=== PATIENT | female | born 1995 | race African-American/Black ===

== ENCOUNTER 2025-03-05 13:14 | Inpatient (IN) | payer OTHER ==
[2025-03-05 14:10] LABS: Absolute Lymphocytes (CBC) 1.5 K/uL (0.7-4.9); Hematocrit 39.9 % (36.0-45.0); Hemoglobin 12.4 g/dL (12.0-15.0); MCH 25.0 pg (27.0-35.0); MCHC 31.1 g/dL (32.0-36.0); MCV 80.2 fL (80-100); MPV 8.3 fL (7.6-11.3); Nucleated RBC Absolute Count 0.0 (0-0); Nucleated Red Blood Cells % 0.0 % (0-0); RBC Red Blood Cell Count 4.97 M/uL (3.86-4.86); White Blood Count 7.10 thou/uL (4.3-10.9)
[2025-03-05 14:17] LABS: PT Prothrombin Time 13.5 SECONDS (10-13.0); Protime INR 1.2
[2025-03-05 14:31] LABS: ALT/SGPT 18 U/L (13-56); AST/SGOT 11 U/L (15-37); Albumin 2.8 g/dL (3.4-5.0); Albumin/Globulin Ratio 0.5 (1.1-1.8); Alkaline Phosphatase 90 U/L (45-117); Anion Gap 7.0 mEq/L (5.0-15.0); BUN Blood Urea Nitrogen 12 mg/dL (7-18); Globulin 5.4 g/dL (2.3-3.5); Glucose Level 207 mg/dL (74-106); Lipase 31 U/L (13-75); Magnesium 1.7 mg/dL (1.6-2.4); NT PRO-BNP 423 pg/mL (<125); Potassium 4.0 mEq/L (3.5-5.1); Troponin High Sensitivity 10.0 pg/mL (<58.9)
[2025-03-05 14:37] LABS: Bilirubin Indirect, Calculated 0.1 mg/dL (0.2-0.8)
--- NOTE | 2025-03-05 14:38 | RAD REPORT ---
EXAMINATION: ONE VIEW CHEST XR CLINICAL INDICATION: Female, 29 years old.,COUGH TECHNIQUE: Frontal chest projection is submitted. Examination is limited by patient positioning and t echnique. COMPARISON: No prior exam. FINDINGS: The lungs are grossly clear of focal opacities although suboptimal inspiratory effort somewhat limits evaluation. Central prominence of the vasculature noted No pneumothorax or sizable effusion. The heart is normal in size. Mediastinal contours are unremarkable. IMPRESSION: Prominence of the central vasculature which could relate to suboptimal inspiratory effort or mild con gestive changes.
[2025-03-05 15:01] LABS: Sqamous Epithelial <5 /HPF (None Seen); Urine Culture Reflex Order NOT NEEDED; Urine Microscopic Reflex YN ORDER UMIC
[2025-03-05 15:07] LABS: Blood Morphology Comment NOT SEEN (NOT SEEN); Differential Total Cells Count 100; Segmented Neutrophils 56 % (40-80)
[2025-03-05] MEDS ORDERED: METHYLPREDNISOLONE 125 MG INJ ONE ×2 (15:36→23:47)
[2025-03-05] MEDS ORDERED: IPRATROPIUM BROM 0.5MG/2.5ML ONE ×2 (15:36→19:26)
[2025-03-05] MEDS ORDERED: LEVALBUTEROL 1.25 MG/3 ML NEB ONE ×2 (15:36→16:56)
[2025-03-05] MEDS ORDERED: FAMOTIDINE 20 MG/2 ML VIAL IV ONE (15:36)
--- NOTE | 2025-03-05 15:39 | EDPHYS ---
Physician Documentation [facility] Name: Roldan Lowe Age: 29 yrs Sex: Female : 1995 Arrival Date: 03/05/2025 Time: 13:14 Bed 27 Private MD: ED Physician Simón Daigle HPI: 03/05 15:29 This 29 yrs old Black Female presents to ER via Wheelchair with complaints of Breathing gay Difficulty. 15:29 The patient has shortness of breath at rest, with light activity. Onset: The gay symptoms/episode began/occurred 2 day(s) ago. Duration: The symptoms are continuous, and are steadily getting worse. The patient's shortness of breath is aggravated by coughing. Associated signs and symptoms: Pertinent positives: non-productive cough. Severity of symptoms: At their worst the symptoms were mild moderate in the emergency department the symptoms are worse. The patient has experienced similar episodes in the past, several times. Historical: - Allergies: 13:30 Latuda; ll1 - Home Meds: 18:45 Metoprolol Tartrate Oral [Active]; tirzepatide subcutaneous [Active]; Albuterol Inhl hb [Active]; - PMHx: 13:30 Anxiety; Arthritis; Asthma; DM type 2; Sleep Apnea; Hypertensive disorder; trach; ll1 - PSHx: 13:30 trache placement and removal; ll1 - Immunization history:: Adult Immunizations up to date. - Infectious Disease History:: Denies. - Social history:: Smoking status: Patient/guardian denies using tobacco, Stopped _ months ago 3. ROS: 15:30 Constitutional: Negative for fever, chills, and weight loss, Eyes: Negative for injury, gay pain, redness, and discharge, ENT: Negative for injury, pain, and discharge, Neck: Negative for injury, pain, and swelling, Cardiovascular: Negative for chest pain, palpitations, and edema, Abdomen/GI: Negative for abdominal pain, nausea, vomiting, diarrhea, and constipation, Back: Negative for injury and pain, : Negative for injury, bleeding, discharge, and swelling, MS/Extremity: Negative for injury and deformity, Skin: Negative for injury, rash, and discoloration, Neuro: Negative for headache, weakness, numbness, tingling, and seizure, Psych: Negative for depression, anxiety, suicide ideation, homicidal ideation, and hallucinations, Allergy/Immunology: Negative for hives, rash, and allergies, Endocrine: Negative for neck swelling, polydipsia, polyuria, polyphagia, and marked weight changes, 15:30 Respiratory: Positive for cough, shortness of breath, wheezing, inspiratory, expiratory, Exam: 15:30 Constitutional: This is a well developed, well nourished patient who is awake, alert, gay and in no acute distress. Head/Face: Normocephalic, atraumatic. Eyes: Pupils equal round and reactive to light, extra-ocular motions intact. Lids and lashes normal. Conjunctiva and sclera are non-icteric and not injected. Cornea within normal limits. Periorbital areas with no swelling, redness, or edema. Neck: Trachea midline, no thyromegaly or masses palpated, and no cervical lymphadenopathy. Supple, full range of motion without nuchal rigidity, or vertebral point tenderness. No Meningismus. Chest/axilla: Normal chest wall appearance and motion. Nontender with no deformity. No lesions are appreciated. Cardiovascular: Regular rate and rhythm with a normal S1 and S2. No gallops, murmurs, or rubs. Normal PMI, no JVD. No pulse deficits. Abdomen/GI: Soft, non-tender, with normal bowel sounds. No distension or tympany. No guarding or rebound. No evidence of tenderness throughout. Back: No spinal tenderness. No costovertebral tenderness. Full range of motion. Skin: Warm, dry with normal turgor. Normal color with no rashes, no lesions, and no evidence of cellulitis. MS/ Extremity: Pulses equal, no cyanosis. Neurovascular intact. Full, normal range of motion., bilateral aka Neuro: Awake and alert, GCS 15, oriented to person, place, time, and situation. Cranial nerves II-XII grossly intact. Motor strength 5/5 in all extremities. Sensory grossly intact. Cerebellar exam normal. Normal gait. Psych: Awake, alert, with orientation to person, place and time. Behavior, mood, and affect are within normal limits. 15:30 ENT: stridor with cough, usual. 16:01 ECG was reviewed by the Attending Physician. [facility] Vital Signs: 13:27 BP 129 / 97; Pulse 112; Resp 22; Temp 98.3; Pulse Ox 85% on R/A; ll1 15:15 BP 117 / 71; Pulse 107; Resp 25; Pulse Ox 99% on 3 lpm NC; hb 17:51 BP 134 / 86; Pulse 103; Resp 28; Pulse Ox 95% on BiPAP; FiO2 35 %; hb 17:51 BiPAP 16/8, R16, FiO2 35% hb MDM: 13:23 Medical Screening Exam initiated gay 15:44 Differential diagnosis: Anemia Anxiety Reaction asthma, Bronchitis CHF exacerbation, gay Chronic Obstructive Pulmonary Disease pulmonary edema, Pulmonary Embolism reactive airway disease, Sepsis Unstable Angina. Antibiotic administration: Not indicated. Differential Diagnosis: Obstructed Airway Bronchitis Influenza Upper Respiratory Infection Sinusitis Pharyngitis Otitis Media Asthma Exacerbation Viral Syndrome Pneumonia. Immunization status:. Data reviewed: vital signs, nurses notes, lab test result(s), EKG, radiologic studies, plain films. I considered the following discharge prescriptions or medication management in the emergency department Medications were administered in the Emergency Department. See MAR. Independent interpretation of the following test(s) in the Emergency Department EKG: See my EKG interpretation above. Test considered but Not performed: CT: NO CT CHEST SECONDARY TO WEIGHT. Historians other than the Patient: Family Member: PT AND MOM WELL INFORMERD. Care significantly affected by the following chronic conditions: Diabetes, Hypertension, Obesity, ASTHMA, HX TRACH, ANXIETY. 16:01 ED course: PT AND FAMILY WANT TO GO TO [facility], NOT [facility]ITH[facility]. 03/05 13:26 Order name: Basic Metabolic Panel; Complete Time: 15:16 [facility] 03/05 13:26 Order name: CBC with Diff; Complete Time: 15:16 [facility] 03/05 13:26 Order name: LFT's; Complete Time: 15:16 [facility] 03/05 13:26 Order name: Magnesium; Complete Time: 15:16 [facility] 03/05 13:26 Order name: NT PRO-BNP; Complete Time: 15:16 [facility] 03/05 13:26 Order name: PT-INR; Complete Time: 15:16 [facility] 03/05 13:26 Order name: Troponin HS; Complete Time: 15:16 [facility] 03/05 13:26 Order name: Lipase; Complete Time: 15:16 [facility] 03/05 13:26 Order name: UA Rfx Camacho Cult if indicated; Complete Time: 15:16 [facility] 03/05 13:26 Order name: PREGU; Complete Time: 15:16 gay 03/05 14:18 Order name: Manual Differential; Complete Time: 15:16 EDMS 03/05 15:17 Order name: ABG; Complete Time: 16:02 bd 03/05 15:30 Order name: COVID-19 Ag + Flu A+B Ag; Complete Time: 16:37 gay 03/05 18:33 Order name: CBC with Automated Diff EDMS 03/05 18:33 Order name: CBC with Automated Diff EDMS 03/05 18:33 Order name: Comprehensive Metabolic Panel EDMS 03/05 18:33 Order name: Comprehensive Metabolic Panel EDMS 03/05 18:33 Order name: Magnesium EDMS 03/05 18:33 Order name: Magnesium EDMS 03/06 05:42 Order name: Manual Differential EDMS 03/06 10:37 Order name: D-Dimer EDHI 03/05 13:26 Order name: XRAY Chest (1 view); Complete Time: 15:16 gay 03/05 13:26 Order name: Cardiac monitoring; Complete Time: 15:15 gay 03/05 13:26 Order name: EKG - Nurse/Tech; Complete Time: 15:15 gay 03/05 13:26 Order name: IV Saline Lock; Complete Time: 15:15 gay 03/05 13:26 Order name: Labs collected and sent; Complete Time: 15:15 gay 03/05 13:26 Order name: O2 Per Protocol; Complete Time: 15:15 gay 03/05 13:26 Order name: O2 Sat Monitoring; Complete Time: 15:15 [facility] EC:01 Rate is 110 beats/min. Rhythm is regular. QRS [place] is Normal. [place] interval is normal. [facility] QRS interval is normal. QT interval is normal. No Q waves. T waves are Normal. No ST changes noted. Clinical impression: Sinus tachycardia and No evidence of ischemia. Interpreted by me. Reviewed by me. Administered Medications: 15:47 Drug: MethylPrednisoLONE IVP 125 mg IVP once Route: IVP; Site: right forearm; iw 15:47 Drug: Levalbuterol Inhalation 2.5 mg Inhalation once Route: Inhalation; iw 15:47 Drug: Ipratropium Inhalation Aerosol 0.5 mg Inhalation once Route: Inhalation; iw 15:47 Drug: Famotidine IVP 20 mg IVP once; dilute with 10 mL 0.9% NaCl; give over 2 minutes iw Route: IVP; Site: right forearm; 17:05 Drug: Magnesium Sulfate IVPB 1 grams IVPB once over 1 hrs Route: IVPB; Infused Over: 1 iw hrs; Site: right forearm; 17:06 Drug: Levalbuterol Inhalation 1.25 mg Inhalation once Route: Inhalation; iw Disposition Summary: 03/05/25 17:43 Hospitalization Ordered Notes: Hospitalization Status: Inpatient Admission gay Provider: Florentino Flores cha Condition: Fair(03/05/25 17:43) gay Problem: an acute exacerbation(03/05/25 17:43) gay Symptoms: have improved(03/05/25 17:43) gay Bed/Room Type: Standard gay Location: Telemetry/MedSurg (observation)(03/06/25 09:58) 6 Room Assignment: 205(03/06/25 09:58) 6 Diagnosis - Morbid (severe) obesity with alveolar hypoventilation(03/05/25 17:43) gay - Moderate persistent asthma with (acute) exacerbation gay - Acute and chronic respiratory failure with hypercapnia gay - Hypoxemia gay - Cough - HX OF TRACHEOSTOMY, TRACHEOMALASIA gay Forms: - Medication Reconciliation Form gay - SBAR form gay - Leadership Thank You Letter gay Signatures: Dispatcher [employer] EDSimón Ramírez MD MD cha Williams, Irene, RN RN Marian White RN [place] Emerita Delgado RN RN ll1 Grecia Jacobson RN RN 3 Jyoti Vogt [facility] Corrections: (The following items were deleted from the chart) 13:26 13:26 BASIC METABOLIC PANEL+C.LAB.BRZ ordered. EDMS EDMS 13:26 13:26 CBC+H.LAB.BRZ ordered. EDMS EDMS 13:26 13:26 HEPATIC FUNCTION+C.LAB.BRZ ordered. EDMS EDMS 13:26 13:26 MAGNESIUM+C.LAB.BRZ ordered. EDMS EDMS 13:26 13:26 PROBNP+C.LAB.BRZ ordered. EDMS EDMS 13:26 13:26 PROTIME (+INR)+COAG.LAB.BRZ ordered. EDMS EDMS 13:26 13:26 Troponin High Sensitivity+C.LAB.BRZ ordered. EDMS EDMS 13:26 13:26 LIPASE+C.LAB.BRZ ordered. EDMS EDMS 13: 13:26 UA Rfx Camacho Cult if indicated+U.LAB.BRZ ordered. EDMS EDMS 13: 13:26 Test, Urine+UC.LAB.BRZ ordered. EDMS EDMS 13: 13:26 Chest Single View+RAD.RAD.BRZ ordered. EDMS EDMS 15:18 14:00 Social history: Smoking status: Patient denies any tobacco usage or history of. hbhb 15:30 15:30 COVID-19 Ag + Flu A+B Ag+I.LAB.BRZ ordered. EDMS EDMS 16:03 16:03 BiPap ([employer] Only)+RC.RAD.BRZ ordered. EDMS EDMS 17:41 15:38 to [facility] gay gay 17:41 15:38 [facility]-System gay gay 17:41 15:38 Higher level of care gay gay 17:41 15:38 Stable gay gay 17:41 15:38 new gay gay 17:41 15:38 have improved gya gay 17:41 15:38 Dyspnea gay gay 17:41 15:38 Tracheostomy complications - HISTORY, HX OF TRACHEALMALASIA gay gay 17:41 15:38 Apnea, not elsewhere classified gay gay 17:41 15:38 Morbid (severe) obesity with alveolar hypoventilation gay gay 18:40 17:43 Telemetry/MedSurg (Inpatient) gay kb3 18:40 17:43 gay kb3 03/06 09:58 03/05 18:40 [facility] ER HOLD kb3 bc6 03/06 09:58 03/05 18:40 ERHOLD- kb3 bc6
--- NOTE | 2025-03-05 15:39 | ER ---
Nurse's Notes [facility] Name: Roldan Lowe Age: 29 yrs Sex: Female : 1995 Arrival Date: 03/05/2025 Time: 13:14 Bed 27 Private MD: Diagnosis: Morbid (severe) obesity with alveolar hypoventilation;Moderate persistent asthma with (acute) exacerbation;Acute and chronic respiratory failure with hypercapnia;Hypoxemia;Cough-HX OF TRACHEOSTOMY, TRACHEOMALASIA Presentation: 03/05 13:27 Chief complaint: Patient states: she feels like the airway is closing in and having ll1 chest tightness that began last night. 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 pt has hx of Trach placed in october and removed 3 rd week of october. Coronavirus screen: At this time, the client does not indicate any symptoms associated with coronavirus-19. Ebola Screen: No symptoms or risks identified at this time. Initial Sepsis Screen: Does the patient meet any 2 criteria? RR > 20 per min. HR > 90 bpm. Yes Does the patient have a suspected source of infection? No. Patient's initial sepsis screen is negative. Risk Assessment: Do you want to hurt yourself or someone else? Patient reports no desire to harm self or others. Onset of symptoms was March 04, 2025. 13:27 Method Of Arrival: Wheelchair ll1 13:27 Acuity: DEB 2 ll1 Triage Assessment: 13:30 General: Appears distressed, Behavior is cooperative, appropriate for age, anxious. ll1 Pain: Complains of pain in chest. Respiratory: Reports shortness of breath at rest on exertion Airway is patent Respiratory effort is labored, Respiratory pattern is regular, symmetrical, tachypnea. Historical: - Allergies: 13:30 Latuda; ll1 - Home Meds: 18:45 Metoprolol Tartrate Oral [Active]; tirzepatide subcutaneous [Active]; Albuterol Inhl hb [Active]; - PMHx: 13:30 Anxiety; Arthritis; Asthma; DM type 2; Sleep Apnea; Hypertensive disorder; trach; ll1 - PSHx: 13:30 trache placement and removal; ll1 - Immunization history:: Adult Immunizations up to date. - Infectious Disease History:: Denies. - Social history:: Smoking status: Patient/guardian denies using tobacco, Stopped _ months ago 3. Screenin:18 [facility] ED Fall Risk Assessment (Adult) History of falling in the last 3 months, hb including since admission No falls in past 3 months (0 pts) Confusion or Disorientation No (0 pts) Intoxicated or Sedated No (0 pts) Impaired Gait Yes (1 pt) Mobility Assist Device Used Yes (1 pt) Altered Elimination No (0 pt) Score/Fall Risk Level 0 - 2 = Low Risk Oriented to surroundings, Maintained a safe environment, Educated pt \T\ family on fall prevention, incl call for assistance when getting out of bed. Abuse screen: Denies threats or abuse. Denies injuries from another. Nutritional screening: No deficits noted. Tuberculosis screening: No symptoms or risk factors identified. Assessment: 14:00 General: Appears in no apparent distress. Behavior is calm, cooperative. Pain: Denies hb pain. Neuro: Level of Consciousness is awake, alert, obeys commands, Oriented to person, place, time, situation. Cardiovascular: Patient's skin is warm and dry. Respiratory: Respiratory effort is mildly labored Respiratory pattern is tachypnea. GI: No signs and/or symptoms were reported involving the gastrointestinal system. : No signs and/or symptoms were reported regarding the genitourinary system. EENT: No signs and/or symptoms were reported regarding the EENT system. Derm: Skin is pink, warm \T\ dry. Musculoskeletal: No signs and/or symptoms reported regarding the musculoskeletal system. 15:40 Reassessment: Patient appears in no apparent distress at this time. No changes from hb previously documented assessment. 17:51 Reassessment: Patient appears in no apparent distress at this time. No changes from hb previously documented assessment. Vital Signs: 13:27 BP 129 / 97; Pulse 112; Resp 22; Temp 98.3; Pulse Ox 85% on R/A; ll1 15:15 BP 117 / 71; Pulse 107; Resp 25; Pulse Ox 99% on 3 lpm NC; hb 17:51 BP 134 / 86; Pulse 103; Resp 28; Pulse Ox 95% on BiPAP; FiO2 35 %; hb 17:51 BiPAP 16/8, R16, FiO2 35% hb ED Course: 13:22 Patient arrived in ED. ll1 13:22 Simón Daigle MD is Attending Physician. gay 13:30 Triage completed. ll1 13:30 Arm band placed on right wrist. ll1 13:49 XRAY Chest (1 view) In Process Unspecified. EDMS 13:55 EKG done, by ED staff, reviewed by Simón Daigle MD. hb 13:56 Accessed peripheral vein via ultrasound, utilizing dynamic ultrasound technique using hb per hospital protocol. Clean \T\ dry. Dressing intact. Good blood return. Flushes easily. 20g RFA. 13:56 Initial lab(s) drawn, by me, sent to lab. hb 14:00 Patient has correct armband on for positive identification. Bed in low position. Call hb light in reach. Provided Education on: call light. Client placed on continuous cardiac and pulse oximetry monitoring. NIBP monitoring applied. vehicle monitor technician on. Pulse ox on. NIBP on. 15:[address] [facility] as requested by pt. 17:41 Florentino Flores MD is Hospitalizing Provider. gay 18:45 No provider procedures requiring assistance completed. Patient admitted, IV remains in hb place. Administered Medications: 15:47 Drug: MethylPrednisoLONE IVP 125 mg IVP once Route: IVP; Site: right forearm; iw 15:47 Drug: Levalbuterol Inhalation 2.5 mg Inhalation once Route: Inhalation; iw 15:47 Drug: Ipratropium Inhalation Aerosol 0.5 mg Inhalation once Route: Inhalation; iw 15:47 Drug: Famotidine IVP 20 mg IVP once; dilute with 10 mL 0.9% NaCl; give over 2 minutes iw Route: IVP; Site: right forearm; 17:05 Drug: Magnesium Sulfate IVPB 1 grams IVPB once over 1 hrs Route: IVPB; Infused Over: 1 iw hrs; Site: right forearm; 17:06 Drug: Levalbuterol Inhalation 1.25 mg Inhalation once Route: Inhalation; iw Medication: 14:00 VIS not applicable for this client. hb Outcome: 15:38 ER care complete, transfer ordered by . gay 17:43 Decision to Hospitalize by Provider. gay 18:45 Admitted to ER Hold. Please see [facility] for further documentation. hb 18:45 Condition: stable 18:45 Instructed on the need for admit, Demonstrated understanding of instructions, 03/06 10:41 Patient left the ED. iw Signatures: Dispatcher [employer] EDMS DirriArline tabor Corey, MD MD cha Williams, Irene, RN RN Marian White RN RN Emerita Koo RN RN ll1 Corrections: (The following items were deleted from the chart) 03/05 14:07 14:07 Accessed peripheral vein via ultrasound, utilizing dynamic ultrasound technique hb using per hospital protocol. Clean \T\ dry. Dressing intact. Good blood return. Flushes easily. 20g RFA. hb 15:17 15:15 BP 117 / 71; Pulse 107bpm; Resp 27bpm; Pulse Ox 99%; hb hb 15:18 14:00 Social history: Smoking status: Patient denies any tobacco usage or history of. hbhb
[2025-03-05 15:43] LABS: Blood O2 Saturation 94.0 % (92.0-98.5)
[2025-03-05 16:11] LABS: Influenza A Ag Negative; Influenza B Ag Negative
[2025-03-05 16:12] LABS: SARS-CoV-2 Antigen Rapid Res Negative (Negative)
[2025-03-05] MEDS ORDERED: MAGNESIUM SULFATE 1 gm IVPB 1 GM/100 ML BAG IV ONE (16:56)
[2025-03-05] MEDS ORDERED: ACETAMINOPHEN 325 MG TABLET PO PRN (18:28)
[2025-03-05] MEDS ORDERED: ONDANSETRON 4 MG/2 ML VIAL IV PRN (18:28)
[2025-03-05] MEDS ORDERED: ALBUTEROL 2.5 MG/3 ML NEB SOL NEB PRN (18:28)
--- NOTE | 2025-03-05 18:34 | P.HP ---
Certification for Inpatient Patient admitted to: Inpatient With expected LOS: >2 Midnights Practitioner: I am a practitioner with admitting privileges, knowledge of patient current condition, hospital course, and medical plan of care. Services: Services provided to patient in accordance with Admission requirements found in Title 42 Section 412.3 of the Code of Federal Regulations Patient History Date of Service: 03/05/25 Reason for admission: SOB History of Present Illness: 29 yrs old Female with past medical history of anxiety, arthritis, asthma, diabetes, sleep apnea, hypertension, with a history of trach placement/removal came in with shortness of breath. The patient has shortness of breath at rest, with light activity. Started 2 days ago and has been progressively getting worse. Complains of cough. Cough with mucoid expectoration. The patient was assessed in the ER and was admitted for further management. At the time of interview patient is on BiPAP hence most of the history is obtained from the chart review and talking to the ER physician. Allergies lurasidone [From Latuda] Adverse Reaction (Verified 03/05/25 17:55) Hives/Rash - Past Medical/Surgical History Past Medical History: Reviewed- Non-Contributory -: COPD Past Surgical History: Reviewed- Non-Contributory - Family History Family History: Reviewed- Non-Contributory - Social History Smoking Status: Never smoker Review of Systems is unable to be obtained Physical Examination - Vital Signs Temperature: 98.5 F Blood Pressure: 136/78 Pulse: 105 Respirations: 18 Pulse Ox (%): 94 - Physical Exam General: Obese, Other (Drowsy ) HEENT: Atraumatic, Normocephalic Neck: Supple Respiratory: Diminished, Crackles/rales, Expiratory wheezes Cardiovascular: Regular rate/rhythm, Normal S1 S2 Capillary refill: <2 Seconds Gastrointestinal: Soft and benign, W/out hepatosplenomegaly Musculoskeletal: No clubbing, Swelling Integumentary: No rashes Neurological: Other (Drowsy , Moves all the limbs ) Lymphatics: No axilla or inguinal lymphadenopathy - Studies Laboratory Data (last 24 hrs) 03/05/25 03/05/25 03/05/25 13:54 13:54 13:54 WBC 7.10 Hgb 12.4 Hct 39.9 Plt Count 327 PT 13.5 H INR 1.20 Sodium 136 Potassium 4.0 BUN 12 Creatinine 0.79 Glucose 207 H Magnesium 1.7 Total Bilirubin 0.3 AST 11 L ALT 18 Alkaline Phosphatase 90 Lipase 31 Assessment and Plan - Plan COPD exacerbation Monitor closely on telemetry Started on bronchodilators Oxygen supplementation Steroids added ABG findings noted Chest x-ray findings noted Pulmonology consult Acute hypoxic hypercapnic respiratory failure On BiPAP ABG findings noted Monitor closely on telemetry Pulmonary vascular congestion Will start on diuretics Will get an echocardiogram Monitor under telemetry Elevated BNP found Obesity Obstructive sleep apnea Advise lifestyle modification Monitor closely GI/DVT prophylaxis Advanced directive full code Discharge Plan: Home Plan to discharge in: 48 Hours - Advance Directives Does patient have a Living Will: No Does patient have a Durable POA for Healthcare: No - Code Status/Comfort Care Code Status: Full Code Time Spent Managing Pts Care (In Minutes): 49
[2025-03-05 18:51] VITALS: BMI 70.7
[2025-03-05] MEDS ORDERED: ALBUTEROL 2.5 MG/3 ML NEB SOL ONE (19:26)
[2025-03-05] MEDS: IPRATROPIUM BROM 0.5MG/2.5ML NEB SCH (19:28)
[2025-03-05] MEDS: ALBUTEROL 2.5 MG/3 ML NEB SOL NEB SCH (19:28)
[2025-03-05] MEDS ORDERED: ACETAMINOPHEN 325 MG TABLET ONE (19:39)
[2025-03-06] MEDS: METHYLPREDNISOLONE 125 MG INJ IV SCH
[2025-03-06] MEDS ORDERED: IPRATROPIUM BROM 0.5MG/2.5ML ONE ×2 (01:24→07:47)
[2025-03-06] MEDS ORDERED: ALBUTEROL 2.5 MG/3 ML NEB SOL ONE ×2 (01:24→07:46)
[2025-03-06 04:51] LABS: Absolute Lymphocytes (CBC) 0.5 K/uL (0.7-4.9); Hematocrit 41.9 % (36.0-45.0); Hemoglobin 13.1 g/dL (12.0-15.0); MCH 25.1 pg (27.0-35.0); MCHC 31.3 g/dL (32.0-36.0); MCV 80.2 fL (80-100); MPV 8.6 fL (7.6-11.3); Nucleated RBC Absolute Count 0.0 (0-0); Nucleated Red Blood Cells % 0.1 % (0-0); RBC Red Blood Cell Count 5.23 M/uL (3.86-4.86); White Blood Count 8.80 thou/uL (4.3-10.9)
[2025-03-06 05:14] LABS: ALT/SGPT 20 U/L (13-56); Albumin 2.9 g/dL (3.4-5.0); Albumin/Globulin Ratio 0.5 (1.1-1.8); Alkaline Phosphatase 83 U/L (45-117); Anion Gap 7.5 mEq/L (5.0-15.0); BUN Blood Urea Nitrogen 14 mg/dL (7-18); Globulin 5.5 g/dL (2.3-3.5); Glucose Level 270 mg/dL (74-106); Magnesium 2.2 mg/dL (1.6-2.4); Potassium 4.5 mEq/L (3.5-5.1)
[2025-03-06 05:22] LABS: AST/SGOT < 10 U/L (15-37)
[2025-03-06 05:41] LABS: Blood Morphology Comment NOT SEEN (NOT SEEN); Differential Total Cells Count 100; Segmented Neutrophils 82 % (40-80)
[2025-03-06] MEDS ORDERED: METHYLPREDNISOLONE 125 MG INJ ONE (05:52)
[2025-03-06] MEDS ORDERED: TRAMADOL HCL 50 MG TAB PO PRN (07:19)
[2025-03-06] MEDS ORDERED: CAFFEINE PO PRN (07:19)
[2025-03-06] MEDS ORDERED: ALBUTEROL INHALER 200 PUFF/6.7 GM IH PRN (07:19)
[2025-03-06] MEDS ORDERED: ASPIRIN PO PRN (07:19)
[2025-03-06] MEDS ORDERED: ACETAMINOPHEN PO PRN (07:19)
[2025-03-06] MEDS: Levofloxacin 750mg IV 750 MG/150 ML BAG IV SCH (08:00)
[2025-03-06] MEDS: HOME MED 1 EA UNK (Fluticasone/Umeclidin/Vilanter [Trelegy Ellipta 200-62.5-25] Blst.W.Dev IH SCH (09:00)
[2025-03-06] MEDS: FUROSEMIDE 40 MG/4 ML VIAL IV SCH (09:00)
[2025-03-06] MEDS: ENOXAPARIN 40 MG/0.4 ML SQ SCH (09:00)
[2025-03-06] MEDS: ARIPiprazole 5 MG TAB PO SCH (09:00)
[2025-03-06] MEDS ORDERED: FUROSEMIDE 40 MG/4 ML VIAL ONE (09:29)
[2025-03-06] MEDS ORDERED: Levofloxacin 750mg IV 750 MG/150 ML BAG IV ONE (09:30)
[2025-03-06] MEDS ORDERED: ENOXAPARIN 40 MG/0.4 ML SQ ONE (09:30)
--- NOTE | 2025-03-06 12:09 | P.PN ---
Subjective Date of Service: 03/06/25 Chief Complaint: SOB Subjective: Improving (Patient has been weaned off the BiPAP. She is on supplemental oxygen via nasal cannula. This is baseline for her.) Physical Examination - Vital Signs Temperature: 98.3 F Blood Pressure: 134/86 Pulse: 103 Respirations: 28 Pulse Ox (%): 95 - Physical Exam General: In no apparent distress, Obese (Morbidly obese) HEENT: Atraumatic, Normocephalic Respiratory: Normal air movement Cardiovascular: No edema, Normal pulses, Regular rate/rhythm, Normal S1 S2 Neurological: Normal speech - Studies Laboratory Data (last 24 hrs) 03/05/25 03/05/25 03/05/25 13:54 13:54 13:54 WBC 7.10 Hgb 12.4 Hct 39.9 Plt Count 327 PT 13.5 H INR 1.20 Sodium 136 Potassium 4.0 BUN 12 Creatinine 0.79 Glucose 207 H Magnesium 1.7 Total Bilirubin 0.3 AST 11 L ALT 18 Alkaline Phosphatase 90 Lipase 31 Assessment And Plan - Plan Assessment Patient is a 29-year-old -[place] female with morbid obesity, chronic respiratory failure on supplemental oxygen at home, obstructive sleep apnea and obesity hypoventilation syndrome. She he also has a history of tracheostomy during prior hospitalization, and was recently found to have tracheal stenosis by ENT Dr. Mendez. She presented overnight for shortness of breath and acute on chronic respiratory failure. Patient had mild CO2 retention with chronic compensation. She is being treated for COPD exacerbation. She has been weaned off BiPAP machine and is currently on supplemental oxygen via nasal cannula. Acute on chronic respiratory failure COPD exacerbation Morbid obesity Obstructive sleep apnea and obesity hypoventilation syndrome Tracheal stenosis History of tracheostomy Plan: Patient has been weaned off BiPAP and transition to supplemental oxygen. Ultimately, she is going to need balloon dilatation for tracheal stenosis Plan is to transfer for higher level of care In the meantime, Schedule IV Solu-Medrol, empiric antibiotics and DuoNebs Insulin sliding scale for steroid-induced hyperglycemia Check for hemoglobin A1c Follow 2D echo to rule out cardiac causes of her respiratory distress Continue routine home medications
[2025-03-06] MEDS ORDERED: GLUCAGON 1 MG/VIAL IM PRN (12:16)
[2025-03-06] MEDS ORDERED: D10W 125 ML IV PRN (12:16)
[2025-03-06] MEDS ORDERED: D50W 25 GM/50 ML SYRINGE IV PRN ×2 (12:25→20:34)
--- NOTE | 2025-03-06 12:42 | P.CNS ---
Date of Consult: 03/06/25 Chief Complaint: SOB History of Present Illness: Age 29 AW dyspnea/ Hx of tracheal stenosis C/o SOB and cough chest pressure. Hx of trach. Severe Asthma and ION Better now Worse 2 days AW resp failure Allergies lurasidone [From Latuda] Adverse Reaction (Verified 03/05/25 17:55) Hives/Rash Home Medications: ARIPiprazole [Abilify] 5 mg PO DAILY 03/05/25 Albuterol Inhaler [Ventolin Inhaler] 2 puff IH Q6H PRN 03/05/25 Aspirin/Acetaminophen/Caffeine [Headache Relief Tablet] 2 each PO Q6HP PRN 03/05/25 Fluticasone/Umeclidin/Vilanter [Trelegy Ellipta 200-62.5-25] 1 each IH DAILY 03/05/25 Furosemide [Lasix] 40 mg PO DAILY 03/05/25 Smz./Tmp. [Bactrim Ds 800 MG/160 MG] 1 tab PO BID 03/05/25 traMADol HCL [Ultram] 50 mg PO TID PRN 03/05/25 - Past Medical/Surgical History -: COPD -: DM -: ARTHRITIS -: SLEEP APNEA -: HTN -: TRACH Review of Systems 10-point ROS is otherwise unremarkable Respiratory: Shortness of Breath Physical Examination Temp Pulse Resp BP Pulse Ox 98.3 F 103 H 28 H 134/86 95 03/06/25 12:21 03/06/25 12:21 03/06/25 12:21 03/06/25 12:21 03/06/25 12:21 General: Alert, Oriented x3 HEENT: Atraumatic Neck: Supple Respiratory: Clear to auscultation bilaterally Cardiovascular: No edema, Regular rate/rhythm, Normal S1 S2 (No Stridor) Laboratory Data (last 24 hrs) 03/05/25 03/05/25 03/05/25 13:54 13:54 13:54 WBC 7.10 Hgb 12.4 Hct 39.9 Plt Count 327 PT 13.5 H INR 1.20 Sodium 136 Potassium 4.0 BUN 12 Creatinine 0.79 Glucose 207 H Magnesium 1.7 Total Bilirubin 0.3 AST 11 L ALT 18 Alkaline Phosphatase 90 Lipase 31 - Problems (1) Respiratory failure Current Visit: Yes Status: Acute Plan: PT AW hyperpneic resp failure. Hx fo tracheal stenosis. S/B ENT. Transfer to tertiary care for balloon dilatation. Hypoxic hypercarbic .With CO2 retention .Complaint with CPAP at home PT is obese. [place] PO antibiotics and steroids Stabel for tranfer. MIGEL Mendez and Hollis Qualifiers: Chronicity: unspecified
[2025-03-06] MEDS: INSULIN REGULAR (HUMAN) 100 UNIT/ML SQ SCH ×2 (13:09→16:30)
[2025-03-06] MEDS: predniSONE 20 MG TAB PO SCH (20:28)
[2025-03-06 23:56] VITALS: BP 141/82; TEMP 98
[2025-03-07 01:55] VITALS: O2SAT 95
--- NOTE | 2025-03-07 06:31 | P.PN ---
Date of Service: 03/06/25 Transfer center at [facility] contacted me for to Doc report on patient to be transferred, provided report to the receiving doctor at [facility], patient was accepted. Patient to be transferred for dilation of the trachea . Patient was then transferred to [facility] in [place], [place]..
[2025-03-07] MEDS ORDERED: levoFLOXacin 250 MG TAB PO SCH (09:00)
== END 2025-03-07 01:59 | disposition short-term general hospital (02) | DRG 189 ==
LOC: ER 13:14 → ERHOLD 18:28 → 2ND 03-06 10:32
PROVIDERS: ADMIT Family Medicine; ATTEND Internal Medicine
PROC: 4A033R1 Measurement of Arterial Saturation, Peripheral, Percutaneous Approach (ICD-10-PCS; principal; 2025-03-05)
PROC: 5A09357 Assistance with Respiratory Ventilation, Less than 24 Consecutive Hours, Continuous Positive Airway Pressure (ICD-10-PCS; 2025-03-05)
DX: J96.21 Acute and chronic respiratory failure with hypoxia (principal); E66.2 Morbid (severe) obesity with alveolar hypoventilation; Z68.45 Body mass index [BMI] 70 or greater, adult; J45.41 Moderate persistent asthma with (acute) exacerbation; J44.1 Chronic obstructive pulmonary disease with (acute) exacerbation; E11.9 Type 2 diabetes mellitus without complications; I10 Essential (primary) hypertension; Z93.0 Tracheostomy status; Z88.8 Allergy status to other drugs, medicaments and biological substances; Z99.81 Dependence on supplemental oxygen; Z11.52 Encounter for screening for COVID-19; Z87.891 Personal history of nicotine dependence; Z79.82 Long term (current) use of aspirin; Z79.899 Other long term (current) drug therapy
CPT/HCPCS: 36415; 36600; 71045; 80048; 80053; 80076; 81001; 81025; 82805; 82947; 83036; 83690; 83735; 83880; 84484; 85025; 85379; 85610; 87428; 93005; 94640; 94660; 94760; 96374; 96375; 99285; J1650; J1815; J1938; J2919; J3475; J7512; J7613; J7614; J7644